=== PATIENT | male | born 1975 | race Caucasian/White ===

== ENCOUNTER 2016-07-19 17:17 | Emergency (ER) | payer OTHER ==
[~2016-07-19] VITALS: Ht 172.7 cm; Wt 79.3 kg
[~2016-07-19 17:17] MED LIST: CIPRO500 MG PO; HYDROCODON-ACE1 EAC7 PO; MOTRIN800 MG PO; NOHOMEMEDS; ZOFRAN4 MG PO
[2016-07-19] MEDS ORDERED: ERYTHROMYCIN O3.5 GM BOTH EYES (18:21)
[2016-07-19 18:46] VITALS: BP 124/81
== END 2016-07-19 18:49 | disposition home or self-care (01) ==
LOC: EME 17:17 → EXP 17:17
DX: H10.9 Unspecified conjunctivitis (principal)
CPT/HCPCS: 99281; 99283

== ENCOUNTER 2017-05-14 17:59 | Emergency (ER) | payer OTHER ==
[~2017-05-14] VITALS: Ht 172.7 cm; Wt 83.2 kg
[~2017-05-14 17:59] MED LIST changes: +ERYTHROMYCIN O3.5 GM BOTH EYES; +FLEXERIL10 MG PO; +NAPROXEN500 MG PO
[2017-05-14] MEDS ORDERED: MOTRIN800 MG PO (21:38)
[2017-05-14] MEDS ORDERED: NORCO 7.5/321 TABLET PO (21:38)
[2017-05-14] MEDS ORDERED: LIDODERM 5% P1 PATCH TD (21:40)
[2017-05-14 22:16] VITALS: BP 133/82
== END 2017-05-14 22:16 | disposition home or self-care (01) ==
LOC: EME 17:59
DX: S20.212A Contusion of left front wall of thorax, initial encounter (principal); S22.32XA Fracture of one rib, left side, initial encounter for closed fracture; S83.91XA Sprain of unspecified site of right knee, initial encounter; W18.30XA Fall on same level, unspecified, initial encounter
CPT/HCPCS: 71101; 71250; 73564; 99281; 99284